=== PATIENT | female | born 1990 | race Caucasian/White ===

== ENCOUNTER 2020-02-23 14:08 | Emergency (ER) | payer BC ==
[2020-02-23] MEDS ORDERED: Sodium Chloride 0.9% 10 ML Syringe FLUSH PRN (16:24)
[2020-02-23] MEDS ORDERED: Dexamethasone 4 MG Tab PO ONE (17:29)
[2020-02-23] MEDS ORDERED: Acetaminophen 325 MG Tab PO ONE (17:30)
[2020-02-23] MEDS ORDERED: Sodium Chloride 0.9% 1,000 ML IV STA (17:56)
--- NOTE | 2020-02-23 19:39 | EDM.PDOC ---
ED HPI GENERAL MEDICAL PROBLEM - General Chief Complaint: Respiratory Problem Stated Complaint: SOB/COUGH Time Seen by Provider: 02/23/20 16:24 Source of Information: Reports: Patient, RN Notes Reviewed History Limitations: Reports: No Limitations - History of Present Illness INITIAL COMMENTS - FREE TEXT/NARRATIVE: Patient is a 29-year-old female presenting to the emergency department with complaints of cough, shortness of breath, body aches, and fever. States her symptoms began on and have been progressively worsening. She has had a known exposure to COVID-19 as her boyfriend who lives with her also has it. She contacted her primary care provider in [place] to discuss her symptoms on Friday. She was started on albuterol and Advair inhalers, although she does not have a history of asthma. She does have a history of Hodgkin's lymphoma requiring chemo and radiation back in 2006. She is currently in remission from this. 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 She states whenever she gets sick she generally gets short of breath. She denies any abdominal pain, nausea, or vomiting. She last used her albuterol this morning. She states it does seem to improve her shortness of breath. Last dose of Tylenol was around 10:00 this morning. - Related Data Allergies Allergy/AdvReac Type Severity Reaction Status Date / Time No Known Allergies Allergy Verified 02/23/20 15:28 Home Meds: Home Meds Albuterol Sulfate [Albuterol Sulfate Hfa] 02/23/20 [History] Fluticasone Propion/Salmeterol [Advair Hfa 45-21 Mcg Inhaler] 02/23/20 [History] dexAMETHasone [Dexamethasone] 6 mg PO BID 5 Days #10 tab 02/23/20 [Rx] Past Medical History Endocrine/Metabolic History: Reports: Diabetes, Type II Oncologic (Cancer) History: Reports: Hodgkin's Lymphoma - Infectious Disease History Infectious Disease History: Reports: Novel Coronavirus Social & Family History - Tobacco Use Tobacco Use Status *Q: Never Tobacco User ED ROS GENERAL - Review of Systems Review Of Systems: See Below Constitutional: Reports: Fever, Chills, Fatigue HEENT: Reports: No Symptoms Respiratory: Reports: Shortness of Breath, Pleuritic Chest Pain, Cough Cardiovascular: Reports: Dyspnea on Exertion. Denies: Lightheadedness, Syncope Endocrine: Reports: No Symptoms GI/Abdominal: Reports: No Symptoms : Reports: No Symptoms Musculoskeletal: Reports: Other (Generalized body aches) Skin: Reports: No Symptoms Neurological: Reports: No Symptoms Psychiatric: Reports: No Symptoms Hematologic/Lymphatic: Reports: No Symptoms Immunologic: Reports: No Symptoms ED EXAM, GENERAL - Physical Exam Exam: See Below General Appearance: Alert, WD/WN, No Apparent Distress Respiratory/Chest: No Respiratory Distress, Lungs Clear, Normal Breath Sounds, No Accessory Muscle Use, Chest Non-Tender, Other (Tachypneic with shallow respirations) Cardiovascular: Normal Peripheral Pulses, Regular Rate, Rhythm, No Edema, No Gallop, No JVD, No Murmur, No Rub GI/Abdominal: Normal Bowel Sounds, Soft, Non-Tender, No Organomegaly, No Distention, No Abnormal Bruit, No Mass Neurological: Alert, Oriented, CN II-XII Intact, Normal Cognition, Normal Gait, Normal Reflexes, No Motor/Sensory Deficits Psychiatric: Normal Affect, Normal Mood Skin Exam: Warm, Dry, Intact, Normal Color, No Rash #1 Interpretation EKG Date: 02/23/20 Time: 16:52 Rhythm: NSR Rate (Beats/Min): 134 [place]: Normal P-Wave: Present QRS: Normal ST-T: Normal QT: Normal EKG Interpretation Comments: Sinus tachycardia at 134 Decreased voltage precordial leads Occasional PACs Consider left atrial hypertrophy EKG interpreted by Dr. Greta KHAN Course - Vital Signs Last Recorded V/S: Last Vital Signs Temp 99.9 F 02/23/20 15:28 Pulse 130 H 02/23/20 15:28 Resp 20 02/23/20 16:48 BP 153/98 H 02/23/20 15:28 Pulse Ox 94 L 02/23/20 16:48 Orthostatic Blood Pressure [ 118/90 Standing] Orthostatic Blood Pressure [ 115/80 Supine] - Orders/Labs/Meds Orders: Active Orders 24 hr Category Date Time Status Chest 1V Frontal [CR] Stat Exams 02/23/20 16:25 Taken Isolation [COMM] Routine Oth 02/23/20 16:06 Ordered Peripheral IV Insertion Adult [OM.PC] Stat Oth 02/23/20 16:25 Ordered Labs: Laboratory Tests 02/23/20 02/23/20 02/23/20 Range/Units 16:45 16:50 16:50 WBC (3.98-10.04) K/mm3 RBC (3.98-5.22) M/mm3 Hgb (11.2-15.7) gm/dl Hct (34.1-44.9) % MCV (79.4-94.8) fl MCH (25.6-32.2) pg MCHC (32.2-35.5) g/dl RDW Std Deviation (36.4-46.3) fL Plt Count (182-369) K/mm3 MPV (9.4-12.3) fl Neut % (Auto) (34.0-71.1) % Lymph % (Auto) (19.3-51.7) % [place] % (Auto) (4.7-12.5) % Eos % (Auto) (0.7-5.8) Baso % (Auto) (0.1-1.2) % Neut # (Auto) (1.56-6.13) K/mm3 Lymph # (Auto) (1.18-3.74) K/mm3 [place] # (Auto) (0.24-0.36) K/mm3 Eos # (Auto) (0.04-0.36) K/mm3 Baso # (Auto) (0.01-0.08) K/mm3 Manual Slide Review D-Dimer, Quantitative (0.19-0.50) mg/L Sodium (136-145) mEq/L Potassium (3.5-5.1) mEq/L Chloride (98-107) mEq/L Carbon Dioxide (21-32) mEq/L Anion Gap (5-15) BUN (7-18) mg/dL Creatinine (0.55-1.02) mg/dL Est Cr Clr Drug Dosing mL/min Estimated GFR (MDRD) (>60) mL/min BUN/Creatinine Ratio (14-18) Glucose (74-106) mg/dL Lactic Acid (0.4-2.0) mmol/L Calcium (8.5-10.1) mg/dL Ferritin 92 (8-252) ng/ml Total Bilirubin (0.2-1.0) mg/dL AST (15-37) U/L ALT (14-59) U/L Alkaline Phosphatase (46-116) U/L Lactate Dehydrogenase 228 (81-234) U/L Troponin I (0.00-0.056) ng/mL C-Reactive Protein (<1.0) mg/dL Total Protein (6.4-8.2) g/dl Albumin (3.4-5.0) g/dl Globulin gm/dL Albumin/Globulin Ratio (1-2) SARS-CoV-2 RNA (AZRA) Positive H (NEGATIVE) 02/23/20 02/23/20 02/23/20 Range/Units 16:50 16:50 16:50 WBC 7.61 (3.98-10.04) K/mm3 RBC 5.05 (3.98-5.22) M/mm3 Hgb 14.5 (11.2-15.7) gm/dl Hct 45.5 H (34.1-44.9) % MCV 90.1 (79.4-94.8) fl MCH 28.7 (25.6-32.2) pg MCHC 31.9 L (32.2-35.5) g/dl RDW Std Deviation 46.1 (36.4-46.3) fL Plt Count 318 (182-369) K/mm3 MPV 10.1 (9.4-12.3) fl Neut % (Auto) 62.7 (34.0-71.1) % Lymph % (Auto) 24.3 (19.3-51.7) % [place] % (Auto) 12.1 (4.7-12.5) % Eos % (Auto) 0.3 L (0.7-5.8) Baso % (Auto) 0.3 (0.1-1.2) % Neut # (Auto) 4.78 (1.56-6.13) K/mm3 Lymph # (Auto) 1.85 (1.18-3.74) K/mm3 [place] # (Auto) 0.92 H (0.24-0.36) K/mm3 Eos # (Auto) 0.02 L (0.04-0.36) K/mm3 Baso # (Auto) 0.02 (0.01-0.08) K/mm3 Manual Slide Review Normal smear D-Dimer, Quantitative 0.22 (0.19-0.50) mg/L Sodium 135 L (136-145) mEq/L Potassium 3.6 (3.5-5.1) mEq/L Chloride 98 (98-107) mEq/L Carbon Dioxide 26 (21-32) mEq/L Anion Gap 14.6 (5-15) BUN 6 L (7-18) mg/dL Creatinine 0.8 (0.55-1.02) mg/dL Est Cr Clr Drug Dosing 99.99 mL/min Estimated GFR (MDRD) > 60 (>60) mL/min BUN/Creatinine Ratio 7.5 L (14-18) Glucose 266 H (74-106) mg/dL Lactic Acid (0.4-2.0) mmol/L Calcium 9.2 (8.5-10.1) mg/dL Ferritin (8-252) ng/ml Total Bilirubin 0.3 (0.2-1.0) mg/dL AST 57 H (15-37) U/L ALT 69 H (14-59) U/L Alkaline Phosphatase 77 (46-116) U/L Lactate Dehydrogenase (81-234) U/L Troponin I < 0.017 (0.00-0.056) ng/mL C-Reactive Protein 6.5 H* (<1.0) mg/dL Total Protein 8.1 (6.4-8.2) g/dl Albumin 3.2 L (3.4-5.0) g/dl Globulin 4.9 gm/dL Albumin/Globulin Ratio 0.7 L (1-2) SARS-CoV-2 RNA (AZRA) (NEGATIVE) 02/23/20 02/23/20 Range/Units 16:50 20:10 WBC (3.98-10.04) K/mm3 RBC (3.98-5.22) M/mm3 Hgb (11.2-15.7) gm/dl Hct (34.1-44.9) % MCV (79.4-94.8) fl MCH (25.6-32.2) pg MCHC (32.2-35.5) g/dl RDW Std Deviation (36.4-46.3) fL Plt Count (182-369) K/mm3 MPV (9.4-12.3) fl Neut % (Auto) (34.0-71.1) % Lymph % (Auto) (19.3-51.7) % [place] % (Auto) (4.7-12.5) % Eos % (Auto) (0.7-5.8) Baso % (Auto) (0.1-1.2) % Neut # (Auto) (1.56-6.13) K/mm3 Lymph # (Auto) (1.18-3.74) K/mm3 [place] # (Auto) (0.24-0.36) K/mm3 Eos # (Auto) (0.04-0.36) K/mm3 Baso # (Auto) (0.01-0.08) K/mm3 Manual Slide Review D-Dimer, Quantitative (0.19-0.50) mg/L Sodium (136-145) mEq/L Potassium (3.5-5.1) mEq/L Chloride (98-107) mEq/L Carbon Dioxide (21-32) mEq/L Anion Gap (5-15) BUN (7-18) mg/dL Creatinine (0.55-1.02) mg/dL Est Cr Clr Drug Dosing mL/min Estimated GFR (MDRD) (>60) mL/min BUN/Creatinine Ratio (14-18) Glucose (74-106) mg/dL Lactic Acid 2.9 H* 1.7 (0.4-2.0) mmol/L Calcium (8.5-10.1) mg/dL Ferritin (8-252) ng/ml Total Bilirubin (0.2-1.0) mg/dL AST (15-37) U/L ALT (14-59) U/L Alkaline Phosphatase (46-116) U/L Lactate Dehydrogenase (81-234) U/L Troponin I (0.00-0.056) ng/mL C-Reactive Protein (<1.0) mg/dL Total Protein (6.4-8.2) g/dl Albumin (3.4-5.0) g/dl Globulin gm/dL Albumin/Globulin Ratio (1-2) SARS-CoV-2 RNA (AZRA) (NEGATIVE) Meds: Medications Discontinued Medications Generic Name Dose Route Start Last Admin Trade Name Freq PRN Reason Stop Dose Admin Acetaminophen 975 mg 02/23/20 17:30 02/23/20 17:48 Tylenol PO 02/23/20 17:31 975 mg NOW ONE Administration Dexamethasone 6 mg 02/23/20 17:29 02/23/20 17:47 Dexamethasone PO 02/23/20 17:30 6 mg ONETIME ONE Administration Sodium Chloride 1,000 mls @ 999 mls/hr 02/23/20 17:56 02/23/20 18:08 Normal Saline IV 02/23/20 18:56 999 mls/hr NOW STA Administration Sodium Chloride 10 ml 02/23/20 16:24 02/23/20 17:03 Saline Flush FLUSH 10 ml ASDIRECTED PRN Administration Keep Vein Open - Re-Assessments/Exams Free Text/Narrative Re-Assessment/Exam: Patient is a 29-year-old female presenting to the emergency department with complaints of cough, shortness of breath, fever, body aches since of last week. She is had known exposure to COVID-19. She has been using albuterol and Advair inhaler since Friday. States this does help, but shortly thereafter she feels short of breath again. She does not have a home pulse oximeter so she is not sure what her oxygen saturations have been running. Initial oxygen saturation was 88% on room air during triage, however it did improve to 91 to 94% on room air with rest. She is tachycardic in the 130s with a low-grade fever. Patient is quite certain that she does not want to be transferred to another facility for admission as we do not have beds here in [place]. We will do complete a work-up on her and further discuss this once results are available. I have ordered CBC, CMP, CRP, lactic acid, D-dimer, troponin, EKG, chest x-ray, and a 1 hour Covid test. We will give her dexamethasone 6 mg p.o. as well as Tylenol 975 mg as it is very likely that the patient has Covid based on her symptoms and history of exposure. Patient feels that she is dehydrated as she states she has lost 10 pounds since the onset of this illness. We will wait for the labs to return and complete orthostatic vital signs higher to fluid administration. 02/23/20 19:39 Hematology was significant for glucose elevated at 266, lactic acid 2.9, CRP 6.5. D-dimer and troponin were normal. Patient was found to be orthostatic. Heart rate increased from 128 - 148 from lying to standing. She is Covid positive as expected. Chest x-ray shows low lung volumes with minimal patchy basilar opacities which may represent atelectasis or pneumonia. I have given her her liter of IV fluids as this could explain her lactic acid elevation as well. She is on the edge of requiring admission as her oxygen saturations are in the low 90s and occasionally dipped into the upper 80s, however she continues to be adamant that she does not want to be admitted since we have no beds in [place] and she does not want to be transferred to an outlying facility. She is feeling much better after the liter of IV fluids and dexamethasone pulse. States she does not feel nearly as short of breath. We will plan to repeat a lactic acid at 3 hours. I have sent in electronic prescription for dexamethasone to [facility] for her mother to pickling solution maker. Her mother will also pickling solution maker a home pulse oximeter so that she may monitor her oxygen saturations at home since patient does not want to be admitted at this time. 02/23/20 21:10 Patient's repeat lactic acid was 1.7. She continues to feel better after the dexamethasone. She also used her albuterol inhaler again. Oxygen saturations have maintained in the low 90s. Her mother was able to get her a pulse oximeter as well as pickling solution maker her dexamethasone. We will discharge her home with strict return precautions. She verbalized understanding of instructions. Discharge instructions as documented. Departure - Departure Time of Disposition: 21:11 Disposition: Home, Self-Care 01 Condition: Good Clinical Impression: COVID-19 - Discharge Information *PRESCRIPTION DRUG MONITORING PROGRAM REVIEWED*: No *COPY OF PRESCRIPTION DRUG MONITORING REPORT IN PATIENT PAVAN: No Prescriptions: dexAMETHasone [Dexamethasone] 6 mg PO BID 5 Days #10 tab Instructions: COVID-19 Frequently Asked Questions, COVID-19 Referrals: Kailey Gorman NP [Primary Care Provider] - Forms: ED Department Discharge Additional Instructions: You were seen in the emergency department today for worsening of shortness of breath with a known exposure to COVID-19. Your work-up included blood work, an EKG of your heart, chest x-ray, and a Covid test. Results of your work-up showed that you were mildly dehydrated. Chest x-ray showed some possible viral pneumonia versus atelectasis. Your blood work was otherwise normal. The EKG of your heart was normal. Your Covid test was positive. While in the emergency department you received a first dose of dexamethasone which is a steroid, T ylenol, as well as a liter of IV fluids. You stated that this did improve your shortness of breath. Your oxygen saturations were on the low end of normal in the emergency department. A prescription for dexamethasone has been sent. Take this medication as prescribed. Continue to use your albuterol inhaler as needed for shortness of breath. Recommend that you monitor your oxygen saturations in termittently throughout the day. If you find that you are maintaining an oxygen saturation below 90% or develop any new or worsening symptoms of concern, you should return to the emergency department for reevaluation. Sepsis Event Note (ED) - Evaluation Sepsis Screening Result: Possible Sepsis Risk - Focused Exam Vital Signs: Vital Signs Temp Pulse Resp BP Pulse Ox 02/23/20 16:48 20 94 L 02/23/20 15:28 99.9 F 130 H 24 H 153/98 H 88 L - My Orders Last 24 Hours: My Active Orders 02/23/20 16:25 Chest 1V Frontal [CR] Stat Peripheral IV Insertion Adult [OM.PC] Stat - Assessment/Plan Last 24 Hours: My Active Orders 02/23/20 16:25 Chest 1V Frontal [CR] Stat Peripheral IV Insertion Adult [OM.PC] Stat
--- NOTE | 2020-02-24 09:17 | CR ---
PROCEDURE INFORMATION: Exam: XR Chest, 1 View Exam date and time: 02/23/2020 4:25 PM Age: 29 years old Clinical indication: Cough and shortness of breath and other: Covid? TECHNIQUE: Imaging protocol: XR of the chest Views: 1 view. COMPARISON: No relevant prior studies available. FINDINGS: Lungs: Lung volumes are low. Minimal patchy bilateral lower lobe opacities. Pleural space: Unremarkable. No pleural effusion. No pneumothorax. Heart/Mediastinum: Unremarkable. No cardiomegaly. Bones/joints: Unremarkable. IMPRESSION: Low lung volumes with minimal patchy basilar opacities which may represent atelectasis and or pneumonia. Thank you for allowing us to participate in the care of your patient. Dictated and Authenticated by: Shayan Felix MD 02/23/2020 6:03 PM Central Time ([place] & [place]) [facility]ITALJuana
== END 2020-02-23 21:30 | disposition home or self-care (01) ==
LOC: JD.ED 14:08
DX: U07.1 COVID-19 (principal); E11.9 Type 2 diabetes mellitus without complications
CPT/HCPCS: 36415; 71045; 80053; 82728; 83605; 83615; 84484; 85025; 85379; 86140; 87635; 93005; 99285; A9270; J7030; J8540; 93010; 99284; U0002

== ENCOUNTER 2020-02-28 13:05 | Emergency (ER) | payer BC ==
[2020-02-28] MEDS ORDERED: Sodium Chloride 0.9% 10 ML Syringe FLUSH PRN (13:41)
--- NOTE | 2020-02-28 13:47 | EDM.PDOC ---
ED HPI GENERAL MEDICAL PROBLEM - General Chief Complaint: Respiratory Problem Stated Complaint: LOW O2 Time Seen by Provider: 02/28/20 13:20 Source of Information: Reports: Patient, Old Records, RN Notes Reviewed History Limitations: Reports: No Limitations - History of Present Illness INITIAL COMMENTS - FREE TEXT/NARRATIVE: The patient is a 29-year-old female who presents to the ED for her ongoing COVID-19 symptoms. The patient was diagnosed with COVID-19 on 02/23/2020, but she states that she had been symptomatic, the Friday before that which would have been 02/18/2020. She notes that everything is been going well at home, she is taking her steroids as prescribed. But she noted today that she could not get her O2 saturations above 90% at home. She noted they have been around 85 to 88%. She states that any sort of movement really place her out, and she is not able to tolerate activity much at all. She has a history of Hodgkin's lymphoma with radiation to her chest and spleen in 2006, and states that everything on that front is okay. Her primary care provider did put her on an Advair inhaler and albuterol inhaler and those seem to help as well. She states that today is her last day of steroids, so she became concerned when her oxygen levels were not much better. She is living with her mother and father at this time, and she states they are helping her quite a bit through this illness. She is not noticed any fevers or chills, but states she is taking aspirin fairly regularly. She is not complaining of any nausea or vomiting, she is having a cough and states this is getting to be somewhat productive, and is complaining of worsening shortness of breath. - Related Data Allergies Allergy/AdvReac Type Severity Reaction Status Date / Time No Known Allergies Allergy Verified 02/28/20 13:12 Home Meds: Home Meds Albuterol Sulfate [Albuterol Sulfate Hfa] 2 puff INH BID 02/23/20 [History] Fluticasone Propion/Salmeterol [Advair Hfa 45-21 Mcg Inhaler] 2 puff INH DAILY 02/23/20 [History] dexAMETHasone [Dexamethasone] 6 mg PO BID 5 Days #10 tab 02/28/20 [Rx] norgestimate-ethinyl estradioL [Jennings-Linyah 28 Tablet] 1 tab PO ASDIRECTED 02/28/20 [History] Past Medical History Endocrine/Metabolic History: Reports: Diabetes, Type II Oncologic (Cancer) History: Reports: Hodgkin's Lymphoma Other Oncologic History: 2006 - Infectious Disease History Infectious Disease History: Reports: Novel Coronavirus (02/23/2020) Social & Family History - Tobacco Use Tobacco Use Status *Q: Never Tobacco User ED ROS GENERAL - Review of Systems Review Of Systems: Comprehensive ROS is negative, except as noted in HPI. ED EXAM, GENERAL - Physical Exam Exam: See Below Exam Limited By: No Limitations General Appearance: Alert, WD/WN, Mild Distress (pt seems mildlyl breathless; has a hard time completing sentences in entirety.) Respiratory/Chest: Lungs Clear, Respiratory Distress (mild), Decreased Breath Sounds (diffuse bilaterally) Cardiovascular: Normal Peripheral Pulses, Regular Rate, Rhythm, No Murmur Extremities: Normal Inspection, Normal Capillary Refill Neurological: Alert, Oriented, Normal Cognition, No Motor/Sensory Deficits Psychiatric: Normal Affect, Normal Mood Skin Exam: Warm, Dry, Intact, Normal Color, No Rash Course - Vital Signs Last Recorded V/S: Last Vital Signs Temp 98.2 F 02/28/20 13:13 Pulse 84 02/28/20 15:50 Resp 18 02/28/20 15:50 BP 140/98 H 02/28/20 15:50 Pulse Ox 90 L 02/28/20 15:50 - Orders/Labs/Meds Orders: Active Orders 24 hr Category Date Time Status Sodium Chloride 0.9% [Saline Flush] Med 02/28/20 13:41 Active 10 ml FLUSH ASDIRECTED PRN Isolation [COMM] Routine Oth 02/28/20 13:24 Ordered Peripheral IV Insertion Adult [OM.PC] Routine Oth 02/28/20 13:41 Ordered Medication Orders Sodium Chloride (Saline Flush) 10 ml FLUSH ASDIRECTED PRN PRN Reason: Keep Vein Open Labs: Laboratory Tests 02/28/20 02/28/20 02/28/20 Range/Units 14:18 14:18 14:18 WBC 8.44 (3.98-10.04) K/mm3 RBC 4.87 (3.98-5.22) M/mm3 Hgb 13.8 (11.2-15.7) gm/dl Hct 42.3 (34.1-44.9) % MCV 86.9 D (79.4-94.8) fl MCH 28.3 (25.6-32.2) pg MCHC 32.6 (32.2-35.5) g/dl RDW Std Deviation 42.5 (36.4-46.3) fL Plt Count 539 H D (182-369) K/mm3 MPV 10.0 (9.4-12.3) fl Neutrophils % (Manual) 71 H (40-60) % Band Neutrophils % 0 (0-10) % Lymphocytes % (Manual) 21 (20-40) % Atypical Lymphs % 0 % Monocytes % (Manual) 8 (2-10) % Eosinophils % (Manual) 0 L (0.7-5.8) % Basophils % (Manual) 0 L (0.1-1.2) Platelet Estimate Increased RBC Morph Comment Normal D-Dimer, Quantitative < 0.19 L (0.19-0.50) mg/L Sodium (136-145) mEq/L Potassium (3.5-5.1) mEq/L Chloride (98-107) mEq/L Carbon Dioxide (21-32) mEq/L Anion Gap (5-15) BUN (7-18) mg/dL Creatinine (0.55-1.02) mg/dL Est Cr Clr Drug Dosing mL/min Estimated GFR (MDRD) (>60) mL/min BUN/Creatinine Ratio (14-18) Glucose (74-106) mg/dL Calcium (8.5-10.1) mg/dL Magnesium (1.8-2.4) mg/dl Total Bilirubin (0.2-1.0) mg/dL AST (15-37) U/L ALT (14-59) U/L Alkaline Phosphatase (46-116) U/L C-Reactive Protein 1.2 H* (<1.0) mg/dL Total Protein (6.4-8.2) g/dl Albumin (3.4-5.0) g/dl Globulin gm/dL Albumin/Globulin Ratio (1-2) 02/28/20 Range/Units 14:18 WBC (3.98-10.04) K/mm3 RBC (3.98-5.22) M/mm3 Hgb (11.2-15.7) gm/dl Hct (34.1-44.9) % MCV (79.4-94.8) fl MCH (25.6-32.2) pg MCHC (32.2-35.5) g/dl RDW Std Deviation (36.4-46.3) fL Plt Count (182-369) K/mm3 MPV (9.4-12.3) fl Neutrophils % (Manual) (40-60) % Band Neutrophils % (0-10) % Lymphocytes % (Manual) (20-40) % Atypical Lymphs % % Monocytes % (Manual) (2-10) % Eosinophils % (Manual) (0.7-5.8) % Basophils % (Manual) (0.1-1.2) Platelet Estimate RBC Morph Comment D-Dimer, Quantitative (0.19-0.50) mg/L Sodium 131 L (136-145) mEq/L Potassium 4.2 (3.5-5.1) mEq/L Chloride 95 L (98-107) mEq/L Carbon Dioxide 21 (21-32) mEq/L Anion Gap 19.2 H (5-15) BUN 17 (7-18) mg/dL Creatinine 0.8 (0.55-1.02) mg/dL Est Cr Clr Drug Dosing 99.99 mL/min Estimated GFR (MDRD) > 60 (>60) mL/min BUN/Creatinine Ratio 21.3 H (14-18) Glucose 460 H (74-106) mg/dL Calcium 9.1 (8.5-10.1) mg/dL Magnesium 2.1 (1.8-2.4) mg/dl Total Bilirubin 0.3 (0.2-1.0) mg/dL AST 19 (15-37) U/L ALT 34 (14-59) U/L Alkaline Phosphatase 64 (46-116) U/L C-Reactive Protein (<1.0) mg/dL Total Protein 7.3 (6.4-8.2) g/dl Albumin 2.9 L (3.4-5.0) g/dl Globulin 4.4 gm/dL Albumin/Globulin Ratio 0.7 L (1-2) Meds: Medications Generic Name Dose Route Start Last Admin Trade Name Freq PRN Reason Stop Dose Admin Sodium Chloride 10 ml 02/28/20 13:41 Saline Flush FLUSH ASDIRECTED PRN Keep Vein Open - Re-Assessments/Exams Free Text/Narrative Re-Assessment/Exam: 02/28/20 13:46 Patient presents to the ED for her ongoing COVID symptoms. We will repeat chest x-ray and a few labs. The patient may qualify for home 02 services, as she seems quite capable to monitor her symptoms on her own. 02/28/20 14:18 Patient's chest x-ray has been read and demonstrates no change from 02/23/2020. There is some atelectasis or infiltrate in the lung bases that were appreciated. 02/28/20 15:18 Patient's laboratory evaluation has been completed, and there are no acute focal abnormalities at this time. [facility]. We did ambulate the patient in the room, and her O2 sats did drop to 87% on room air. 02/28/20 15:25 Patient was placed on oxygen via nasal cannula at 2 L, and she did seem to recover well, O2 sats at rest are about 95-96%. Her O2 sats with ambulation on 2LNC were 94%. Departure - Departure Time of Disposition: 15:20 Disposition: Home, Self-Care 01 Condition: Good Clinical Impression: COVID-19, Hypoxia - Discharge Information *PRESCRIPTION DRUG MONITORING PROGRAM REVIEWED*: No *COPY OF PRESCRIPTION DRUG MONITORING REPORT IN PATIENT PAVAN: No Prescriptions: dexAMETHasone [Dexamethasone] 6 mg PO BID 5 Days #10 tab Instructions: COVID-19 Frequently Asked Questions Referrals: PCP,Not In Area [Primary Care Provider] - Forms: ED Department Discharge Additional Instructions: You were evaluated in the ER today for your ongoing COVID-19 symptoms. Your lab work and chest x-ray at today's visit, are not worsening in any way, to make us think that you need hospitalization at this time. Your blood glucose was high at today's visit. If you do not already have a blood glucose monitor at home to monitor your blood sugars. As you are on steroids, your blood sugars are likely going to be somewhat uncontrolled while taking the steroids. However your oxygen saturations while you are ambulating of the room did drop to 87% on room air, which will qualify you for home oxygen at this time. [facility] You will need to go there after your discharge, to obtain the services. There address is [address] [place] [address] [id number], their telephone number is [phone]. As above, you have been given a prescription for oxygen at home use, I would recommend using 2 L via nasal cannula, to keep your O2 saturations above 90% You may only increase the liter flow to 4 L, if this does not keep your oxygen above 90%, then you should return immediately to the ER for further management. Please continue all other medications as previously prescribed by your regular provider for further management of your COVID-19 symptoms. Please go home, and continue to increase your oral fluid hydration, as you were slightly dehydrated while you were in the ER. You did not receive any sort of IV fluids. Liquids like Gatorade/Powerade would be sufficient, and please try to remember to eat several small meals throughout the day, to help keep her nutrition up while you are sick. Please return to the ER at any time if symptoms change or worsen. Sepsis Event Note (ED) - Evaluation Sepsis Screening Result: No Definite Risk - Focused Exam Vital Signs: Vital Signs Temp Pulse Resp BP Pulse Ox 02/28/20 15:50 84 18 140/98 H 90 L 02/28/20 13:13 98.2 F 106 H 22 H 134/99 H 94 L - My Orders Last 24 Hours: My Active Orders 02/28/20 13:24 Isolation [COMM] Routine 02/28/20 13:41 Sodium Chloride 0.9% [Saline Flush] 10 ml FLUSH ASDIRECTED PRN Peripheral IV Insertion Adult [OM.PC] Routine - Assessment/Plan Last 24 Hours: My Active Orders 02/28/20 13:24 Isolation [COMM] Routine 02/28/20 13:41 Sodium Chloride 0.9% [Saline Flush] 10 ml FLUSH ASDIRECTED PRN Peripheral IV Insertion Adult [OM.PC] Routine
--- NOTE | 2020-02-28 14:18 | CR ---
PROCEDURE INFORMATION: Exam: XR Chest, 1 View Exam date and time: 02/28/2020 1:37 PM Age: 29 years old Clinical indication: Shortness of breath; Patient HX: Covid+, increasing SOB TECHNIQUE: Imaging protocol: XR of the chest Views: 1 view. COMPARISON: CR Chest 1V Frontal 02/23/2020 4:25 PM FINDINGS: Lungs: Stable atelectasis or infiltrate in the lung bases. Calcified right hilar lymph nodes. Pleural space: Unremarkable. No pleural effusion. No pneumothorax. Heart/Mediastinum: Unremarkable. No cardiomegaly. Bones/joints: Unremarkable. Other findings: Shallow inspiration. IMPRESSION: No change since 02/23/2020. Atelectasis or infiltrate in the lung bases. Thank you for allowing us to participate in the care of your patient. Dictated and Authenticated by: Carline Najera MD 02/28/2020 3:15 PM Central Time ([place] & [place]) YUDI
== END 2020-02-28 16:05 | disposition home or self-care (01) ==
LOC: JD.ED 13:05
DX: U07.1 COVID-19 (principal); E11.9 Type 2 diabetes mellitus without complications; Z79.899 Other long term (current) drug therapy
CPT/HCPCS: 36415; 71045; 71045-26; 80053; 83735; 85007; 85027; 85379; 86140; 99283; 99285-25

== ENCOUNTER 2021-04-22 18:42 | Emergency (ER) | payer BC ==
[2021-04-22] MEDS ORDERED: Ondansetron 4 MG/2 ML SDV IVPUSH ONE (19:24)
[2021-04-22] MEDS ORDERED: HYDROmorphone 1 MG/ML Syringe IVPUSH STA (19:24)
[2021-04-22] MEDS ORDERED: Sodium Chloride 0.9% 1,000 ML IV SCH (19:30)
--- NOTE | 2021-04-22 19:30 | EDM.PDOC ---
ED HPI GENERAL MEDICAL PROBLEM - General Chief Complaint: Abdominal Pain Stated Complaint: LT SIDE PAIN Time Seen by Provider: 04/22/21 19:06 Source of Information: Reports: Patient, Family (Mother) History Limitations: Reports: No Limitations - History of Present Illness INITIAL COMMENTS - FREE TEXT/NARRATIVE: Ms. Holloway is a very pleasant 30-year-old woman who now presents the ED stating that she developed sharp left flank pain this morning. She took some Excedrin Migraine, and it resolved, but then returned around 16:00 this afternoon, now radiating to the left lower quadrant of her abdomen. She developed some nausea and vomited around 17:00. No recent urinary symptoms. No prior similar symptoms. The patient states that she last ate around 15:30. At triage, the patient's initial BP was found to be modestly elevated at 151/94, with slight tachycardia of 101 bpm. She was afebrile, saturating 98% on room air. She appears to be relatively comfortable, in no acute distress. Prior to this morning, the patient denies having a recent fever, chills, sore throat, ear pain, nasal or sinus congestion, cough, dyspnea, chest pain, palpitations, nausea, vomiting, constipation, diarrhea, abdominal pain, urinary symptoms, recent weight gain or weight loss, recent bloody bowel movements or black bowel movements, recent joint aches, headaches, or rashes. The patient's PCP is Kailey Gorman NP, in [place]. Her Oncologist is Dr. Jasmeet Orona. She has not received a COVID vaccination, nor an influenza vaccination this season. Left Abdomen Pain Score (Numeric/FACES): 9 - Related Data Allergies Allergy/AdvReac Type Severity Reaction Status Date / Time No Known Allergies Allergy Verified 04/22/21 19:05 Home Meds: Home Meds Albuterol Sulfate [Albuterol Sulfate Hfa] 2 puff INH BID 02/23/20 [History] Fluticasone Propion/Salmeterol [Advair Hfa 45-21 Mcg Inhaler] 2 puff INH DAILY 02/23/20 [History] dexAMETHasone [Dexamethasone] 6 mg PO BID 5 Days #10 tab 02/28/20 [Rx] norgestimate-ethinyl estradioL [Stewart-Linyah 28 Tablet] 1 tab PO ASDIRECTED 02/28/20 [History] Past Medical History Endocrine/Metabolic History: Reports: Diabetes, Type II, Obesity/BMI 30+ Oncologic (Cancer) History: Reports: Hodgkin's Lymphoma (s/p CTx, RTx - cured) - Infectious Disease History Infectious Disease History: Reports: Novel Coronavirus (dx'd 02/23/2020) - Past Surgical History HEENT Surgical History: Reports: Oral Surgery (dental extractions) Musculoskeletal Surgical History: Reports: Other (See Below) (Right ankle ligament repair x 2) Oncologic Surgical History: Reports: Other (See Below) (Right neck LN bx. Right hip bone marrow bx.) Social & Family History - Tobacco Use Tobacco Use Status *Q: Never Tobacco User - Alcohol Use Alcohol Use History: Yes Alcohol Use Frequency: Socially - Recreational Drug Use Recreational Drug Use: No - Living Situation & Occupation Living situation: Reports: Single, Alone Occupation: Employed (Teacher) ED ROS GENERAL - Review of Systems Review Of Systems: Comprehensive ROS is negative, except as noted in HPI. ED EXAM, GI/ABD - Physical Exam Exam: See Below Exam Limited By: No Limitations General Appearance: Alert, WD/WN, No Apparent Distress Eyes: Bilateral: Normal Appearance, EOMI Ears: Normal External Exam, Hearing Grossly Normal Nose: Normal Inspection Throat/Mouth: Normal Inspection, Normal Lips, Normal Voice, No Airway Compromise Head: Atraumatic, Normocephalic Neck: Normal Inspection, Full Range of Motion Respiratory/Chest: No Respiratory Distress, Lungs Clear, Normal Breath Sounds, No Accessory Muscle Use Cardiovascular: Normal Peripheral Pulses, Regular Rate, Rhythm, No Edema, No Gallop, No JVD, No Murmur, No Rub GI/Abdominal Exam: Normal Bowel Sounds, Soft, No Organomegaly, No Distention, No Abnormal Bruit, No Mass, Tender (Very mild, left lower quadrant only. No ntender elsewhere.) Back Exam: Normal Inspection, Full Range of Motion. No: CVA Tenderness (L), CVA Tenderness (R) Extremities: Normal Inspection, Normal Range of Motion, No Pedal Edema, Normal Capillary Refill Neurological: Alert, Oriented, Normal Cognition, No Motor/Sensory Deficits Psychiatric: Normal Affect Skin Exam: Warm, Dry, Intact, Normal Color, No Rash Course - Vital Signs Last Recorded V/S: Last Vital Signs Temp 36.3 C 04/22/21 19:07 Pulse 101 H 04/22/21 19:07 Resp 17 04/22/21 19:07 BP 151/94 H 04/22/21 19:07 Pulse Ox 98 04/22/21 19:07 - Orders/Labs/Meds Orders: Active Orders 24 hr Category Date Time Status Strain Urine [RC] ASDIRECTED Care 04/22/21 21:23 Active Abdomen Pelvis w Cont [CT] Stat Exams 04/22/21 19:25 Taken Sodium Chloride 0.9% [Normal Saline] 1,000 ml Med 04/22/21 19:30 Active IV ASDIRECTED Medication Orders Sodium Chloride (Normal Saline) 1,000 mls @ 150 mls/hr IV ASDIRECTED KRANTHI Last Admin: 04/22/21 20:06 Dose: 150 mls/hr Documented by: MODESTA Labs: Laboratory Tests 04/22/21 04/22/21 04/22/21 Range/Units 19:50 19:50 20:03 WBC 12.19 H (3.98-10.04) K/mm3 RBC 4.74 (3.98-5.22) M/mm3 Hgb 14.9 (11.2-15.7) gm/dl Hct 43.2 (34.1-44.9) % MCV 91.1 D (79.4-94.8) fl MCH 31.4 (25.6-32.2) pg MCHC 34.5 (32.2-35.5) g/dl RDW Std Deviation 41.3 (36.4-46.3) fL Plt Count 375 H D (182-369) K/mm3 MPV 10.0 (9.4-12.3) fl Neut % (Auto) 69.5 (34.0-71.1) % Lymph % (Auto) 20.6 (19.3-51.7) % Stewart % (Auto) 8.0 (4.7-12.5) % Eos % (Auto) 1.0 (0.7-5.8) Baso % (Auto) 0.5 (0.1-1.2) % Neut # (Auto) 8.48 H (1.56-6.13) K/mm3 Lymph # (Auto) 2.51 (1.18-3.74) K/mm3 Stewart # (Auto) 0.97 H (0.24-0.36) K/mm3 Eos # (Auto) 0.12 (0.04-0.36) K/mm3 Baso # (Auto) 0.06 (0.01-0.08) K/mm3 Sodium 136 (136-145) mEq/L Potassium 4.5 (3.5-5.1) mEq/L Chloride 100 (98-107) mEq/L Carbon Dioxide 23 (21-32) mEq/L Anion Gap 17.5 H (5-15) BUN 11 (7-18) mg/dL Creatinine 0.9 (0.55-1.02) mg/dL Est Cr Clr Drug Dosing 88.07 mL/min Estimated GFR (MDRD) > 60 (>60) mL/min BUN/Creatinine Ratio 12.2 L (14-18) Glucose 210 H (70-99) mg/dL Calcium 9.3 (8.5-10.1) mg/dL Urine Color Yellow (Yellow) Urine Appearance Slt cloudy H (Clear) Urine pH 6.0 (5.0-8.0) Ur Specific [place] > or = 1.030 (1.005-1.030) Urine Protein 1+ H (Negative) Urine Glucose (UA) Negative (Negative) Urine Ketones 2+ H (Negative) Urine Occult Blood 2+ H (Negative) Urine Nitrite Negative (Negative) Urine Bilirubin Negative (Negative) Urine Urobilinogen 0.2 (0.2-1.0) Ur Leukocyte Esterase Negative (Negative) Urine RBC >100 H (0-5) /hpf Urine WBC 0-5 (0-5) /hpf Ur Squamous Epith Cells 5-10 H (0-5) /hpf Urine Bacteria Moderate H (FEW) /hpf Urine Mucus Not seen (FEW) /hpf Urine HCG, Qual (NEGATIVE) 04/22/21 Range/Units 20:03 WBC (3.98-10.04) K/mm3 RBC (3.98-5.22) M/mm3 Hgb (11.2-15.7) gm/dl Hct (34.1-44.9) % MCV (79.4-94.8) fl MCH (25.6-32.2) pg MCHC (32.2-35.5) g/dl RDW Std Deviation (36.4-46.3) fL Plt Count (182-369) K/mm3 MPV (9.4-12.3) fl Neut % (Auto) (34.0-71.1) % Lymph % (Auto) (19.3-51.7) % Stewart % (Auto) (4.7-12.5) % Eos % (Auto) (0.7-5.8) Baso % (Auto) (0.1-1.2) % Neut # (Auto) (1.56-6.13) K/mm3 Lymph # (Auto) (1.18-3.74) K/mm3 Stewart # (Auto) (0.24-0.36) K/mm3 Eos # (Auto) (0.04-0.36) K/mm3 Baso # (Auto) (0.01-0.08) K/mm3 Sodium (136-145) mEq/L Potassium (3.5-5.1) mEq/L Chloride (98-107) mEq/L Carbon Dioxide (21-32) mEq/L Anion Gap (5-15) BUN (7-18) mg/dL Creatinine (0.55-1.02) mg/dL Est Cr Clr Drug Dosing mL/min Estimated GFR (MDRD) (>60) mL/min BUN/Creatinine Ratio (14-18) Glucose (70-99) mg/dL Calcium (8.5-10.1) mg/dL Urine Color (Yellow) Urine Appearance (Clear) Urine pH (5.0-8.0) Ur Specific [place] (1.005-1.030) Urine Protein (Negative) Urine Glucose (UA) (Negative) Urine Ketones (Negative) Urine Occult Blood (Negative) Urine Nitrite (Negative) Urine Bilirubin (Negative) Urine Urobilinogen (0.2-1.0) Ur Leukocyte Esterase (Negative) Urine RBC (0-5) /hpf Urine WBC (0-5) /hpf Ur Squamous Epith Cells (0-5) /hpf Urine Bacteria (FEW) /hpf Urine Mucus (FEW) /hpf Urine HCG, Qual Negative (NEGATIVE) Meds: Medications Generic Name Dose Route Start Last Admin Trade Name Freq PRN Reason Stop Dose Admin Sodium Chloride 1,000 mls @ 150 mls/hr 04/22/21 19:30 04/22/21 20:06 Normal Saline IV 150 mls/hr ASDIRECTED KRANTHI Administration Discontinued Medications Generic Name Dose Route Start Last Admin Trade Name Freq PRN Reason Stop Dose Admin Hydromorphone HCl 0.5 mg 04/22/21 19:24 04/22/21 19:48 Hydromorphone 1 Mg/Ml Syringe IVPUSH 04/22/21 19:25 0.5 mg ONETIME STA Administration Hydromorphone HCl 0.5 mg 04/22/21 20:26 04/22/21 20:30 Hydromorphone 0.5 Mg/0.5 Ml Syringe IVPUSH 04/22/21 20:27 0.5 mg ONETIME ONE Administration Hydromorphone HCl 1 mg 04/22/21 21:22 04/22/21 21:32 Hydromorphone 1 Mg/Ml Syringe IVPUSH 04/22/21 21:23 1 mg ONETIME ONE Administration Iopamidol 100 ml 04/22/21 19:35 04/22/21 20:48 Iopamidol 612 Mg/Ml 100 Ml Bottle IVPUSH 04/22/21 19:36 100 ml ONETIME ONE Administration Ketorolac Tromethamine 30 mg 04/22/21 21:22 04/22/21 21:36 Ketorolac 30 Mg/Ml Sdv IVPUSH 04/22/21 21:23 30 mg ONETIME STA Administration Ondansetron HCl 4 mg 04/22/21 19:24 04/22/21 19:50 Ondansetron 4 Mg/2 Ml Sdv IVPUSH 04/22/21 19:25 4 mg ONETIME ONE Administration Sodium Chloride 10 ml 04/22/21 19:35 04/22/21 20:48 Sodium Chloride 0.9% 10 Ml Sdv FLUSH 04/22/21 19:36 10 ml ONETIME ONE Administration Tamsulosin HCl 0.4 mg 04/22/21 21:22 04/22/21 21:36 Tamsulosin 0.4 Mg Cap.Er PO 04/22/21 21:23 0.4 mg ONETIME ONE Administration - Re-Assessments/Exams Free Text/Narrative Re-Assessment/Exam: 04/22/21 19:29 The cause of the patient's pain is unclear. Her history is compelling for a left-sided ureterolith, but she is somewhat tender to the left lower quadrant, with no left CVA tenderness. I have therefore ordered a work-up that includes a several blood tests, a urinalysis and urine test, and a CT of the abdomen and pelvis with oral and IV contrast. In the meantime, the patient will be treated with IV Dilaudid, IV Zofran, and IV fluid. 04/22/21 20:54 The patient's CBC is remarkable for slight leukocytosis of 12.19, and thrombocytosis of 375,000, with remainder of her CBC being unremarkable. Her BMP is remarkable for hyperglycemia of 210, and is otherwise unremarkable. Her urinalysis is remarkable for slightly cloudy appearance, 2+ occult blood with >100 RBCs, leukocyte esterase negative with 0-5 WBCs, nitrate negative with moderate bacteria, and 5-10 squamous epithelial cells. Her urine test is negative. 04/22/21 21:23 CT of the abdomen and pelvis with oral and IV contrast is read by [facility] as: 1. 2.4 mm stone at the left proximal ureter with mild to moderate left hydronephrosis and proximal hydroureter to the level of the stone and mild left perinephric/periureteral inflammation. 2. Bilateral nonobstructing renal stones. 3. Incidental/nonacute findings are listed in the report. Based on the above, I have ordered some additional Dilaudid, tamsulosin, and IV tramadol. The patient will be given a urine strainer. 04/22/21 21:31 Test results discussed with the patient and her mother. As above, the patient has a 2.4 mm proximal left ureteral stone. Based on the size of the stone, she will likely pass it on her own, but I explained that it could take a couple of weeks. She is to take OTC ibuprofen regularly. I will discharge her home with [facility] prescriptions for Percocet, tamsulosin, and Zofran. She is to stay adequately hydrated and strain all of her urine. I will refer her to Dr. Aleman in the event that her symptoms do not resolve within a couple of weeks. Departure - Departure Time of Disposition: 21:33 Disposition: Home, Self-Care 01 Condition: Good Clinical Impression: Ureterolithiasis - Discharge Information *PRESCRIPTION DRUG MONITORING PROGRAM REVIEWED*: Not Applicable *COPY OF PRESCRIPTION DRUG MONITORING REPORT IN PATIENT PAVAN: Not Applicable Instructions: Abdominal Pain, Adult, [id number] Referrals: Shaka Aleman MD [Ordering Only Provider] - Wos,Edward J, MD [Ordering Only Provider] - Kailey Gorman NP [Ordering Only Provider] - Forms: ED Department Discharge Additional Instructions: You were seen in the emergency room after developing left flank pain this morning that began radiating to your lower left abdomen this afternoon, associated with nausea and vomiting. Work-up in the ER included some blood tests, a urinalysis, a urine test, and a CT of your abdomen and pelvis with oral and IV contrast. Your work-up revealed a 2.4 mm stone in your upper left ureter. Based on the size of the stone, you will most likely pass it on your own, although it may take up to a couple of weeks. We recommend you take [id number] ibuprofen, 3 tablets (600 mg) up to every 8 hours, with food, [id number] initially, then as needed for discomfort. [facility] prescriptions for the prescription opioid Percocet, the anti-spasm medicine tamsulosin (Flomax) and the anti-nausea medicine Zofran ODT have been provided. You may take 1 to 2 tablets of Percocet every 6-8 hours, as needed for pain not relieved by ibuprofen. If you take Percocet, do not drive or operate heavy machinery for 12 hours afterwards. Percocet may cause constipation, so consider taking a stool softener. Take 1 capsule of tamsulosin every evening, starting tomorrow evening, 04/23/2021, as needed for discomfort. You may dissolve 1 tablet of Zofran ODT on your tongue up to every 8 hours, as needed for nausea/vomiting. Stay adequately hydrated. It does not really matter what type of fluid you drink. Strain all of your urine. If you capture the stone, take it to your PCP for analysis. If you have not had any significant relief in your symptoms after 1 week, please follow-up with the Urologist Dr. Shaka Aleman, for further evaluation. If any other problems, please do not hesitate to return to the ER. Sepsis Event Note (ED) - Focused Exam Vital Signs: Vital Signs Temp Pulse Resp BP Pulse Ox 04/22/21 19:07 36.3 C 101 H 17 151/94 H 98 - My Orders Last 24 Hours: My Active Orders 04/22/21 19:25 Abdomen Pelvis w Cont [CT] Stat 04/22/21 19:30 Sodium Chloride 0.9% [Normal Saline] 1,000 ml IV ASDIRECTED 04/22/21 21:23 Strain Urine [RC] ASDIRECTED - Assessment/Plan Last 24 Hours: My Active Orders 04/22/21 19:25 Abdomen Pelvis w Cont [CT] Stat 04/22/21 19:30 Sodium Chloride 0.9% [Normal Saline] 1,000 ml IV ASDIRECTED 04/22/21 21:23 Strain Urine [RC] ASDIRECTED
[2021-04-22] MEDS ORDERED: Iopamidol 612 MG/ML 100 ML Bottle IVPUSH ONE (19:35)
[2021-04-22] MEDS: Sodium Chloride 0.9% 10 ML SDV FLUSH ONE ×2 (20:05→20:48)
[2021-04-22] MEDS ORDERED: HYDROmorphone 0.5 MG/0.5 ML Syringe IVPUSH ONE (20:26)
[2021-04-22] MEDS ORDERED: Ketorolac 30 MG/ML SDV IVPUSH STA (21:22)
[2021-04-22] MEDS ORDERED: HYDROmorphone 1 MG/ML Syringe IVPUSH ONE (21:22)
[2021-04-22] MEDS ORDERED: Tamsulosin 0.4 MG Cap.ER PO ONE (21:22)
--- NOTE | 2021-04-23 14:38 | CT ---
EXAM: CT ABDOMEN \T\ PELVIS W/ CONTRAST LOCATION: [facility] DATE/TIME: 04/22/2021 8:37 PM INDICATION: Abdominal pain; other: left lower quadrant and left flank pain; left lower quadrant abdomen pain and left flank pain. nausea, tenderness COMPARISON: None. TECHNIQUE: CT scan of the abdomen and pelvis was performed following injection of IV contrast. Multiplanar reformats were obtained. Dose reduction techniques were used. CONTRAST: Isovue 300 100 ml FINDINGS: LOWER CHEST: Normal. HEPATOBILIARY: Hepatic steatosis. Benign calcified right posterior hepatic granuloma. PANCREAS: Normal. SPLEEN: Normal. ADRENAL GLANDS: Normal. KIDNEYS/BLADDER: There is an obstructing 2 mm left mid ureteral stone with mild hydroureteronephrosis. There is a slight delayed nephrogram of the left kidney as well as mild fat stranding around the left kidney and proximal ureter. Bilateral nonobstructing renal calculi. No right-sided hydronephrosis. BOWEL: Normal. LYMPH NODES: Normal. VASCULATURE: Unremarkable. PELVIC ORGANS: Normal. MUSCULOSKELETAL: Normal. IMPRESSION: 1. Obstructing 2 mm left mid ureteral stone. 2. Bilateral nonobstructing renal calculi. SIGNED BY: Gray Altman MD 04/23/2021 12:46 PM YUDI
== END 2021-04-22 22:09 | disposition home or self-care (01) ==
LOC: JD.ED 18:42
DX: N13.2 Hydronephrosis with renal and ureteral calculous obstruction (principal); E11.9 Type 2 diabetes mellitus without complications; E66.9 Obesity, unspecified; Z68.37 Body mass index [BMI] 37.0-37.9, adult
CPT/HCPCS: 36415; 74177; 80048; 81001; 81025; 85025; 96374; 96375; 96376; 99284; A9270; J1170; J1885; J2405; J7030; Q9967

== ENCOUNTER 2021-04-23 17:31 | Emergency (ER) | payer BC ==
[2021-04-23] MEDS ORDERED: Sodium Chloride 0.9% 1,000 ML IV STA (18:11)
[2021-04-23] MEDS ORDERED: HYDROmorphone 0.5 MG/0.5 ML Syringe IVPUSH ONE ×3 (18:11→21:28)
[2021-04-23] MEDS ORDERED: Ketorolac 30 MG/ML SDV IVPUSH ONE (18:11)
[2021-04-23] MEDS ORDERED: Sodium Chloride 0.9% 10 ML Syringe FLUSH PRN (18:11)
[2021-04-23] MEDS ORDERED: Ondansetron 4 MG/2 ML SDV IVPUSH ONE (18:11)
[2021-04-23] MEDS ORDERED: Acetaminophen/oxyCODONE 325-5 MG Tab PO ONE (21:06)
--- NOTE | 2021-04-23 21:11 | EDM.PDOC ---
ED HPI GENERAL MEDICAL PROBLEM - General Chief Complaint: Genitourinary Problem Stated Complaint: KIDNEY STONE Time Seen by Provider: 04/23/21 18:06 Source of Information: Reports: Patient, Old Records, RN Notes Reviewed History Limitations: Reports: No Limitations - History of Present Illness INITIAL COMMENTS - FREE TEXT/NARRATIVE: Patient is a 30-year-old female returning to the emergency department with complaints of left flank pain with nausea and vomiting. She was seen in the emergency department last evening and diagnosed with left-sided kidney stone. She was prescribed tamsulosin, Percocet, and Zofran. Last dose of Zofran was around 11 AM this morning. She is unsure when she took her last Percocet, however she took 3 ibuprofen around 1700, however vomited immediately thereafter. She denies any fever or chills. Patient is rating pain 10 out of 10 to the left flank. Left Flank Pain Score (Numeric/FACES): 10 - Related Data Allergies Allergy/AdvReac Type Severity Reaction Status Date / Time No Known Allergies Allergy Verified 04/23/21 17:58 Home Meds: Home Meds Albuterol Sulfate [Albuterol Sulfate Hfa] 2 puff INH BID 02/23/20 [History] Fluticasone Propion/Salmeterol [Advair Hfa 45-21 Mcg Inhaler] 2 puff INH DAILY 02/23/20 [History] norgestimate-ethinyl estradioL [Richardson-Linyah 28 Tablet] 1 tab PO ASDIRECTED 02/28/20 [History] Apple Pectin 1,400 mg PO DAILY 04/23/21 [History] Cyanocobalamin (Vitamin B12) [Vitamin B12] 500 mcg PO DAILY 04/23/21 [History] Ethinyl Estradiol/Drospirenone [Loryna 3 mg-0.02 mg Tablet] 1 tab PO DAILY 04/23/21 [History] Isotonix-Vitamin D 1 tab PO DAILY 04/23/21 [History] Magnesium Oxide [Magnesium] 400 mg PO DAILY 04/23/21 [History] [place]-3 Fatty Acids/Fish Oil [Fish Oil 1,000 mg Capsule] 2,000 mg PO DAILY 04/23/21 [History] Selenium 200 mcg PO DAILY 04/23/21 [History] Spironolactone [Aldactone] 100 mg PO DAILY 04/23/21 [History] Ultra-Gemini Women's Probiotic 1 tab PO DAILY 04/23/21 [History] Zinc 50 mg PO DAILY 04/23/21 [History] sitaGLIPtin Phos/Metformin HCl [Janumet Xr 100-1,000 mg Tablet] 100 - 1,000 mg PO DAILY 04/23/21 [History] Past Medical History HEENT History: Reports: Impaired Vision Other HEENT History: wears eyeglasses. Genitourinary History: Reports: Renal Calculus, UTI, Recurrent Musculoskeletal History: Reports: Fracture Neurological History: Reports: Migraines Endocrine/Metabolic History: Reports: Diabetes, Type II, Obesity/BMI 30+ Hematologic History: Reports: Blood Transfusion(s) Immunologic History: Reports: Immunosuppression Oncologic (Cancer) History: Reports: Hodgkin's Lymphoma Other Oncologic History: 2006 - Infectious Disease History Infectious Disease History: Reports: Chicken Pox, Novel Coronavirus - Past Surgical History HEENT Surgical History: Reports: Oral Surgery Musculoskeletal Surgical History: Reports: Other (See Below) Other Musculoskeletal Surgeries/Procedures:: ankle surgeries. Oncologic Surgical History: Reports: Other (See Below) Other Oncologic Surgeries/Procedures: biopsy lymph node on neck, bone marrow biopsies. Social & Family History - Tobacco Use Tobacco Use Status *Q: Never Tobacco User Second Hand Smoke Exposure: No - Caffeine Use Caffeine Use: Reports: Soda - Recreational Drug Use Recreational Drug Use: Yes - Living Situation & Occupation Living situation: Reports: Single, Alone Occupation: Employed (Teacher) ED ROS GENERAL - Review of Systems Review Of Systems: Comprehensive ROS is negative, except as noted in HPI. ED EXAM, RENAL/ - Physical Exam Exam: See Below Exam Limited By: No Limitations General Appearance: Alert, Moderate Distress Respiratory/Chest: No Respiratory Distress, Lungs Clear, Normal Breath Sounds, No Accessory Muscle Use, Chest Non-Tender Cardiovascular: Normal Peripheral Pulses, Regular Rate, Rhythm, No Edema, No Gallop, No JVD, No Murmur, No Rub GI/Abdominal: Normal Bowel Sounds, Soft, Non-Tender, No Organomegaly, No Distention, No Abnormal Bruit, No Mass Back Exam: Normal Inspection, CVA Tenderness (L) Neurological: Alert, Oriented, CN II-XII Intact, Normal Cognition, Normal Gait, Normal Reflexes, No Motor/Sensory Deficits Psychiatric: Normal Affect, Normal Mood Skin Exam: Warm, Dry, Intact, Normal Color, No Rash Course - Vital Signs Last Recorded V/S: Last Vital Signs Temp 96.8 F L 04/23/21 17:55 Pulse 88 04/23/21 17:55 Resp 16 04/23/21 17:55 BP 153/89 H 04/23/21 17:55 Pulse Ox 100 04/23/21 17:55 - Orders/Labs/Meds Orders: Active Orders 24 hr Category Date Time Status Peripheral IV Care [RC] . DIRECTED Care 04/23/21 18:11 Active Sodium Chloride 0.9% [Saline Flush] Med 04/23/21 18:11 Active 10 ml FLUSH ASDIRECTED PRN Peripheral IV Insertion Adult [OM.PC] Stat Oth 04/23/21 18:11 Ordered Medication Orders Sodium Chloride (Sodium Chloride 0.9% 10 Ml Syringe) 10 ml FLUSH ASDIRECTED PRN PRN Reason: Keep Vein Open Last Admin: 04/23/21 18:38 Dose: 10 ml Documented by: BJORN Labs: Laboratory Tests 04/23/21 04/23/21 04/23/21 Range/Units 18:30 18:30 20:10 WBC 15.72 H (3.98-10.04) K/mm3 RBC 4.51 (3.98-5.22) M/mm3 Hgb 14.1 (11.2-15.7) gm/dl Hct 41.5 (34.1-44.9) % MCV 92.0 (79.4-94.8) fl MCH 31.3 (25.6-32.2) pg MCHC 34.0 (32.2-35.5) g/dl RDW Std Deviation 42.2 (36.4-46.3) fL Plt Count 374 H (182-369) K/mm3 MPV 10.3 (9.4-12.3) fl Neut % (Auto) 71.3 H (34.0-71.1) % Lymph % (Auto) 15.6 L (19.3-51.7) % Richardson % (Auto) 11.9 (4.7-12.5) % Eos % (Auto) 0.7 (0.7-5.8) Baso % (Auto) 0.2 (0.1-1.2) % Neut # (Auto) 11.20 H (1.56-6.13) K/mm3 Lymph # (Auto) 2.46 (1.18-3.74) K/mm3 Richardson # (Auto) 1.87 H (0.24-0.36) K/mm3 Eos # (Auto) 0.11 (0.04-0.36) K/mm3 Baso # (Auto) 0.03 (0.01-0.08) K/mm3 Manual Slide Review Abnormal smear Sodium 135 L (136-145) mEq/L Potassium 3.9 (3.5-5.1) mEq/L Chloride 98 (98-107) mEq/L Carbon Dioxide 22 (21-32) mEq/L Anion Gap 18.9 H (5-15) BUN 12 (7-18) mg/dL Creatinine 1.1 H (0.55-1.02) mg/dL Est Cr Clr Drug Dosing 72.06 mL/min Estimated GFR (MDRD) 58 (>60) mL/min BUN/Creatinine Ratio 10.9 L (14-18) Glucose 223 H (70-99) mg/dL Calcium 8.9 (8.5-10.1) mg/dL Total Bilirubin 0.5 (0.2-1.0) mg/dL AST 38 H (15-37) U/L ALT 47 (14-59) U/L Alkaline Phosphatase 57 (46-116) U/L Total Protein 7.7 (6.4-8.2) g/dl Albumin 3.6 (3.4-5.0) g/dl Globulin 4.1 gm/dL Albumin/Globulin Ratio 0.9 L (1-2) Urine Color Yellow (Yellow) Urine Appearance Clear (Clear) Urine pH 6.5 (5.0-8.0) Ur Specific [place] > or = 1.030 (1.005-1.030) Urine Protein 1+ H (Negative) Urine Glucose (UA) Negative (Negative) Urine Ketones 3+ H (Negative) Urine Occult Blood 2+ H (Negative) Urine Nitrite Negative (Negative) Urine Bilirubin Negative (Negative) Urine Urobilinogen 0.2 (0.2-1.0) Ur Leukocyte Esterase Negative (Negative) Urine RBC 20-30 H (0-5) /hpf Urine WBC 5-10 H (0-5) /hpf Ur Epithelial Cells 5-10 H (0-5) /hpf Urine Bacteria Few (FEW) /hpf Urine Mucus Not seen (FEW) /hpf Meds: Medications Generic Name Dose Route Start Last Admin Trade Name Puja PRN Reason Stop Dose Admin Sodium Chloride 10 ml 04/23/21 18:11 04/23/21 18:38 Sodium Chloride 0.9% 10 Ml Syringe FLUSH 10 ml ASDIRECTED PRN Administration Keep Vein Open Discontinued Medications Generic Name Dose Route Start Last Admin Trade Name Puja PRN Reason Stop Dose Admin Hydromorphone HCl 0.5 mg 04/23/21 18:11 04/23/21 18:38 Hydromorphone 0.5 Mg/0.5 Ml Syringe IVPUSH 04/23/21 18:12 0.5 mg ONETIME ONE Administration Hydromorphone HCl 0.5 mg 04/23/21 19:52 04/23/21 19:56 Hydromorphone 0.5 Mg/0.5 Ml Syringe IVPUSH 04/23/21 19:53 0.5 mg ONETIME ONE Administration Hydromorphone HCl 0.5 mg 04/23/21 21:28 04/23/21 21:31 Hydromorphone 0.5 Mg/0.5 Ml Syringe IVPUSH 04/23/21 21:29 0.5 mg ONETIME ONE Administration Sodium Chloride 1,000 mls @ 999 mls/hr 04/23/21 18:11 04/23/21 18:38 Normal Saline IV 04/23/21 19:11 999 mls/hr NOW STA Administration Ketorolac Tromethamine 15 mg 04/23/21 18:11 04/23/21 18:38 Ketorolac 30 Mg/Ml Sdv IVPUSH 04/23/21 18:12 15 mg ONETIME ONE Administration Ondansetron HCl 4 mg 04/23/21 18:11 04/23/21 18:38 Ondansetron 4 Mg/2 Ml Sdv IVPUSH 04/23/21 18:12 4 mg ONETIME ONE Administration Oxycodone/Acetaminophen 1 tab 04/23/21 21:06 04/23/21 21:31 Acetaminophen/Oxycodone 325-5 Mg Tab PO 04/23/21 21:07 1 tab ONETIME ONE Administration - Re-Assessments/Exams Free Text/Narrative Re-Assessment/Exam: Patient is a 30-year-old female return to ER with complaints of left flank pain with a known kidney stone. She has been vomiting since 3 PM and has been able to keep medications down. On exam, she does have left-sided CVA tenderness. She is in moderate distress. I have ordered IV fluids, Zofran, Toradol, and Dilaudid. I will complete blood work and urinalysis 04/23/21 21:58 Patient is feeling much better. Urinalysis positive for blood, bacteria, and squamous epithelials with no leukocyte esterase or nitrate. WBCs are likely contamination. I will have her increase her Zofran to every 6 hours and jo nue 1-2 tabs of Percocet every 6 in addition to ibuprofen. Discussed return precautions as well as urology follow-up as needed. Discharge instructions as documented. Departure - Departure Time of Disposition: 21:56 Disposition: Home, Self-Care 01 Condition: Good Clinical Impression: Ureterolithiasis - Discharge Information *PRESCRIPTION DRUG MONITORING PROGRAM REVIEWED*: No *COPY OF PRESCRIPTION DRUG MONITORING REPORT IN PATIENT PAVAN: No Instructions: Kidney Stones, [id number] Referrals: PCP,Not In Area [Primary Care Provider] - Forms: ED Department Discharge Additional Instructions: Take Zofran ODT 4 mg every 6 hours for nausea. Take 1 to 2 tablets of Percocet every 6 hours as needed for pain. Do not work or drive for 12 hours after taking this medication as it can be sedating. You did receive 1 tablet of Percocet while in the ER. Use ibuprofen 600 mg every 6 hours. You may take your next dose at midnight this evening as you received Toradol in the ER. Continue to strain your urine. If you fail to pass the stone within the next week, recommend follow-up with urology. Return to ER for any new or worsening symptoms. Sepsis Event Note (ED) - Evaluation Sepsis Screening Result: No Definite Risk - Focused Exam Vital Signs: Vital Signs Temp Pulse Resp BP Pulse Ox 04/23/21 17:55 96.8 F L 88 16 153/89 H 100 - My Orders Last 24 Hours: My Active Orders 04/23/21 18:11 Peripheral IV Care [RC] . DIRECTED Sodium Chloride 0.9% [Saline Flush] 10 ml FLUSH ASDIRECTED PRN Peripheral IV Insertion Adult [OM.PC] Stat - Assessment/Plan Last 24 Hours: My Active Orders 04/23/21 18:11 Peripheral IV Care [RC] . DIRECTED Sodium Chloride 0.9% [Saline Flush] 10 ml FLUSH ASDIRECTED PRN Peripheral IV Insertion Adult [OM.PC] Stat
== END 2021-04-23 22:12 | disposition home or self-care (01) ==
LOC: JD.ED 17:31
DX: N20.1 Calculus of ureter (principal); E11.9 Type 2 diabetes mellitus without complications; E66.9 Obesity, unspecified; Z68.37 Body mass index [BMI] 37.0-37.9, adult; Z79.899 Other long term (current) drug therapy
CPT/HCPCS: 36415; 80053; 81001; 85025; 96374; 96375; 96376; 99284; A9270; J1170; J1885; J2405; J7030